=== PATIENT | female | born 1945 | race Caucasian/White ===

== ENCOUNTER 2017-10-12 01:28 | Day surgery (SDC) | payer MEDICARE ==
[~2017-10-12] VITALS: Ht 149.9 cm; Wt 61.7 kg
[~2017-10-12 01:28] MED LIST: ALLO-2 PO; BUME0.5T PO; BUME0.5T10 PO; CALC-852 PO; CALC-886 PO; CIPR-344 PO; DILT180C73 PO; DILT90CA PO; DILT90TA19 PO; EST3 PO; FURO-45 PO; GLUC-198 PO; HYDR-6016 PO; IBUP-56 PO; INDO50CA92 PO; LIS20 PO; LISI-374 PO; LYSI500C3 PO; LYSI500T34 PO; METR-1 PO; ONDA8TAB94 PO; PNEU0.5D3 IM; PROM-110 PO; PROM25SU9 RC; SULF-198 PO; [UNRECOGNIZED DRUG - CODE] PO
[2017-10-12] MEDS ORDERED: NORMOSOL R SOLN(*) 1000 ML BAG 1,000 ML IV PRN (09:10)
[2017-10-12] MEDS ORDERED: FAMOTIDINE 20 MG TAB PO ONE (09:10)
[2017-10-12] MEDS ORDERED: LIDOCAINE/SOD BICARB 8.4% SYR ID ONE (09:10)
[2017-10-12] MEDS ORDERED: MIDAZOLAM 2 MG/2 ML VIAL IVP PRN (09:40)
[2017-10-12 10:36] VITALS: BP 125/67
[2017-10-12] MEDS ORDERED: PROPOFOL EMUL(*) 10MG/ML 20 ML 60 ML ONE (11:05)
[2017-10-12] MEDS ORDERED: ONDANSETRON 4 MG/2 ML VIAL ONE (11:05)
[2017-10-12] MEDS ORDERED: LIDOCAINE MPF 1% 5 ML VIAL ONE (11:05)
--- NOTE | 2017-10-12 11:49 | EKG ---
FACILITY: [facility] - [place] PATIENT NAME: YONI PHILLIPS : [id number] MR: [id number] V: [id number] EXAM DATE: ORDERING PHYSICIAN: ORVILLE DARLING TECHNOLOGIST: Alvino Long Reason : Blood Pressure : / mmHG Vent. Rate : 063 BPM Atrial Rate : 063 BPM P-R Int : 178 ms QRS Dur : 094 ms QT Int : 426 ms P-R-T Axes : 059 001 038 degrees QTc Int : 435 ms Normal sinus rhythm Normal ECG No previous ECGs available Confirmed by NADINE DALAL ([id number]) on 10/12/2017 2:35:36 PM Referred By: Confirmed By:NADINE DALAL
[2017-10-12] MEDS ORDERED: HYDR100E16 RC (12:35)
--- NOTE | 2017-10-12 12:41 | Short(Outpt) Discharge Summary ---
Discharge Summary Reason for Hosp/Final Diag: (1) Proctitis Status: Chronic Hospital Course & Plan: Colonoscopy with rectal biopsies completed without problems. Pt to go home from PACU if recovers without problems. (2) BRBPR (bright red blood per rectum) Status: Chronic Departure Discharge to: Home, Self Care Discharge Instructions Home Meds Active Scripts Hydrocortisone (CORTENEMA) 100 Mg/60 Ml Enema, 1 BOT RC QHS, #30 BOT 2 Refills Inject the enema into your rectum at bedtime and try to retain in your rectum all night long if possible Prov:ANGELIQUE PORTILLO MD 10/12/17 Allopurinol (Allopurinol) 300 Mg Tablet, 1 TAB PO QDAY, #90 TAB 4 Refills Prov:JENNY CARBAJAL MD 04/12/17 Bumetanide (BUMETANIDE) 0.5 Mg Tablet, 1 TAB PO QAM, #90 TAB 4 Refills Prov:JENNY CARBAJAL MD 04/12/17 Lisinopril (LISINOPRIL) 40 Mg Tablet, 1 TAB PO QDAY, #90 TAB 4 Refills Prov:JENNY CARBAJAL MD 04/12/17 Reported Medications Glucosa Campo 2KCL/Chondroitin Campo (GLUCOSAMINE & CHONDROITIN CAP) 1 Each Capsule, 2 CAP PO QDAY, CAPSULE 04/24/14 Calcium Carbonate/Vitamin D3 (CALCIUM + VITAMIN D TABLET) 1 Each Tablet, 2 TAB PO QDAY 04/24/14 Follow up Referrals: General Surgery - 11/03/17 @ Surgery, General with Angelique Portillo Md You have a follow up appointment scheduled with Dr. Portillo on 11/03/17, at 9:00am. Diet: Regular Activity: As Tolerated Special Instructions: Your colonoscopy was completed without problems and your prep was excellent (Good Job!!). I was able see your entire colon and there were no polyps or cancers. Your rectum is inflamed and you may have a condition called ulcerative proctitis. I took several biopsies in your rectum. I didn't remove any hemorrhoids or cut your sphincter muscle because these procedures can lead to worsening problems in patients with proctitis. I have prescribed a steroid enema and would like for your to inject one enema into your rectum every night at bedtime and try and retain it in your rectum overnight. Also, avoid taking any medications that contain NSAIDS, non-steroidal anti-inflamatory drugs (ibuprofen, motrin, aspirin, aleve, advil, naproxen, naprosyn, etc). Tylenol (acetaminophen) is OK. I will discuss the biopsy results and will see how your symptoms are when I see you back in my office on 11/03/17. ANGELIQUE PORTILLO MD Oct 12, 2017 12:40
--- NOTE | 2017-10-12 12:46 | Post Operative Progress Note ---
Post Operative Progress Note Date: Oct 12, 2017 Time: 12:40 Surgeon: Rc Dictation number: [id number] Anesthesia: LMA by Dr. Kearney Pre-Op Diagnosis: BRBPR Post-Op Diagnosis: Proctitis Findings: Proctitis, suspect IBD limited to rectum Procedure(s): Colonoscopy with biopsies Specimen Removed:(May be N/A): Rectal biopsies Complications: None Fluids: See anesthesia record Estimated Blood Loss: Minimal Date OP Note Dictated: Oct 12, 2017 Time OP Note Dictated: 12:41 ANGELIQUE PORTILLO MD Oct 12, 2017 12:46
[2017-10-12 13:23] VITALS: BP 104/57
[2017-10-12 13:49] VITALS: BP 121/65
[2017-10-12 13:51] VITALS: BP 116/72
--- NOTE | 2017-10-12 20:39 | OPERATIVE REPORT 1 ---
EVENT DATE: October 12, 2017 ENDOSCOPIST: Bradley Tatum MD ANESTHESIOLOGIST: Dinesh Kearney MD ANESTHESIA: LMA. PREOPERATIVE DIAGNOSIS Bright red blood per rectum. POSTOPERATIVE DIAGNOSIS Bright red blood per rectum. PROCEDURE PERFORMED Colonoscopy with biopsies. COMPLICATIONS None. CONDITION Stable. BLOOD LOSS Minimal. SPECIMENS Rectal biopsies. FINDINGS This patient had inflammation confined to her rectum. The rest of her colon other than sigmoid diverticulosis was unremarkable. There were no polyps or cancers. INDICATIONS This is a 72-year-old female whom I have been following with bright red blood per rectum. We put her on a bowel regimen and had some improvement in her bright red blood per rectum, but it persisted. Although she has had a colonoscopy four years ago, which was normal other than sigmoid diverticulosis, I recommended another colonoscopy to determine the cause of her bright red blood per rectum. DESCRIPTION OF PROCEDURE The patient was brought the operating room and placed supine on the operating table. LMA anesthesia was administered because we were preparing for a possible hemorrhoidectomy or even an internal sphincterotomy, and then her legs were placed in candy cane stirrups. The colonoscope was obtained and tested to ensure it was completely functional, then lubricated, and inserted into her rectum through the anus. I advanced the scope all the way through to the cecum and into the terminal ileum without any problems and then slowly withdrew the scope and looked at all mucosal surfaces to look for any abnormalities. When the tip was in the rectum, I retroflexed the scope to look at the anal canal and distal rectum and then straightened the scope out, desufflated the colon, and removed the scope from her rectum. In the rectum, there was marked inflammation with diffuse edema, pseudomembranes, mucus deposits on the mucosa, loss of vasculature. I took several biopsies throughout the rectum. The terminal ileum and the rest of the colon other than sigmoid diverticulosis were unremarkable. There were no polyps or inflammation or cancers. When the scope was withdrawn, the patient was awakened in the LMA room. She was brought to the recovery room in good condition. I elected not to do any other procedure such as sphincterotomy because I did not see a fissure. There were hemorrhoids , but I elected to leave these alone due to the inflammation so as to prevent further problems for her. [facility]
== END 2017-10-12 13:23 | disposition home or self-care (01) ==
LOC: OR 01:28
PROVIDERS: ATTEND Surgery
DX: K62.5 Hemorrhage of anus and rectum (principal); I10 Essential (primary) hypertension
CPT/HCPCS: 00811; 36415; 45380; 88305; 93005; A9270; J2001; J2405; J2704; 82310; 82374; 82435; 82565; 82947; 84132; 84295; 84520

== ENCOUNTER → 2017-11-16 | Outpatient (CLI) | payer MEDICARE ==
[~2017-11-16] MED LIST changes: +HYDR100E16 RC
--- NOTE | 2017-11-16 10:58 | RADIOLOGY IMAGING REPORT ---
FACILITY: [facility] - [place] PATIENT NAME: Karen Fonseca : 1945 MR: [id number] V: [id number] EXAM DATE: ORDERING PHYSICIAN: ANGELIQUE PORTILLO TECHNOLOGIST: Location: [facility] [place] Patient: Karen Fonseca : 1945 Visit/Account:[id number] Date of Sevice: 11/16/2017 THYROID HISTORY: Elevated serum calcium COMPARISON: None. FINDINGS: SIZE: Right lobe: 5.2 x 1.7 x 2 cm Left lobe: 4.5 x 2 x 1.7 cm Isthmus: 2 mm PARENCHYMA: Homogeneous. NODULES: Right lobe: * In the anterior aspect of mid right lobe there is a complex partially cystic well-circumscribed 1. 7 x 1.3 x 0.7 cm mass containing a small peripheral calcification. * In the posterior aspect of the lower lobe there is a slightly lobular partially cystic 1.6 x 1.3 x 0.8 cm nodule * Posterior to the mid right lobe there is a 1.3 x 1.1 x 1.1 cm hypoechoic slightly lobular nodule. Left lobe: * In the medial aspect mid left lobe there is a 7 x 5 x 7 mm well-circumscribed hypoechoic nodule. In the lateral aspect mid left lobe there is an 8 x 6 x 5 mm well-circumscribed isoechoic nodule in t he inferior left lobe there is a 5 mm well-circumscribed hypoechoic nodule Isthmus: * None discrete. VASCULARITY: Within normal limits. ADDITIONAL FINDINGS: None. IMPRESSION: The anterior aspect of the mid right lobe there is a 1.7 cm partially complex nodule. In the posteri or aspect of the right lower lobe there is a 1.6 cm partially complex nodule in the posterior aspect mid right lobe there is a 1.3 cm slightly lobular nodule. Ultrasound-guided FNA biopsy of these nodu les recommended REFERENCE: 2015 [place] [employer] Management Guidelines for Adult Patients with Thyroid Nodules and D ifferentiated Thyroid Cancer: The [place] [employer] Guidelines Task Force on Thyroid Nodul es and Differentiated Thyroid Cancer. SONOGRAPHIC PATTERNS: * Benign: Purely cystic nodules (no solid component); estimated risk of malignancy <1 percent; no bi opsy recommended. * Very Low Suspicion: Spongiform or partially cystic nodules without any of the sonographic features described in low, intermediate, or high suspicion patterns; estimated risk of malignancy <3 percent; consider FNA at > 2 cm (Observation without FNA is also a reasonable option). * Low Suspicion: Isoechoic or hyperechoic solid nodule, or partially cystic nodule with eccentric so lid areas, without microcalcification, irregular margin or ETE (extra-thyroidal extension), or taller than wide shape; estimated risk of malignancy 5-10 percent; recommend FNA at >1.5 cm. * Intermediate Suspicion: Hypoechoic solid nodule with smooth margins without microcalcifications, E TE (extra-thyroidal extension), or taller than wide shape; estimated risk of malignancy 10-20 percent ; recommend FNA at > 1 cm. * High Suspicion: Solid hypoechoic nodule or solid hypoechoic component of a partially cystic nodule with one or more of the following features: irregular margins (infiltrative, microlobulated), microc alcifications, taller than wide shape, rim calcifications with small extrusive soft tissue component, evidence of ETE (extra-thyroidal extension); estimated risk of malignancy >70-90 percent; recommend FNA at > 1 cm. NOTES: * Although a sonographically suspicious subcentimeter thyroid nodule without evidence of extrathyroi scar extension or sonographically suspicious lymph nodes may be observed with close sonographic follow -up rather than pursuing immediate FNA, patient age and preference may modify decision-making. A > 50% interval increase in nodule volume and/or development of new suspicious sonographic features are felt to be a valid reasons for potential re-aspiration of a nodule previously shown to have benig n FNA cytology. Report Dictated By: Stacey Mai MD at 11/16/2017 10:19 AM Report E-Signed By: Stacey Mai MD at 11/16/2017 10:53 AM WSN:[email or web address]
== END ==
LOC: US 01:31
PROVIDERS: ATTEND Surgery
DX: E04.2 Nontoxic multinodular goiter (principal)
CPT/HCPCS: 76536

== ENCOUNTER → 2017-11-28 | Outpatient (CLI) | payer MEDICARE ==
[~2017-11-28] MED LIST changes: +MESA10007 RC; +MESA800T2 PO
[2017-11-28 10:37] LABS: INR 0.96
--- NOTE | 2017-11-28 14:57 | RADIOLOGY IMAGING REPORT ---
FACILITY: [facility] - [place], [place] PATIENT NAME: Karen Fonseca : 1945 MR: [id number] V: [id number] EXAM DATE: ORDERING PHYSICIAN: ANGELIQUE PORTILLO TECHNOLOGIST: Location: [facility] Patient: Karen Fonseca : 1945 Visit/Account:[id number] Date of Sevice: 11/28/2017 Examination: Nuclear Medicine Parathyroid Scan Comparison: Thyroid ultrasound 11/16/2017. History: Increased parathyroid hormone. Procedure: 25.9 mCi technetium 99m Sestamibi was injected intravenously. Multiplanar Gamma camera im ages were obtained of the head, neck and chest at 15 minutes and 3 hours following radiotracer admini stration . FINDINGS: 15 minute images: Normal uptake of tracer by the salivary glands, the thyroid gland, myocardium, and visualized upper abdomen. 3 hour images: Normal washout of tracer from the thyroid gland. No focal areas of abnormal radiotrac er uptake are identified in the neck or mediastinum. IMPRESSION: No evidence of a parathyroid adenoma or ectopic parathyroid tissue. Report Dictated By: Terrell Cochran MD at 11/28/2017 2:52 PM Report E-Signed By: Terrell Cochran MD at 11/28/2017 2:54 PM WSN:[email or web address]
== END ==
LOC: RAD 11-27 03:42 → NUC 00:36
PROVIDERS: ATTEND Surgery
DX: Z01.818 Encounter for other preprocedural examination (principal); E34.9 Endocrine disorder, unspecified
CPT/HCPCS: 36415; 78070; 85610; A9500

== ENCOUNTER → 2017-11-29 | Outpatient (CLI) | payer MEDICARE ==
--- NOTE | 2017-11-29 12:38 | RADIOLOGY IMAGING REPORT ---
FACILITY: [facility] PATIENT NAME: Karen Fonseca : 1945 MR: [id number] V: [id number] EXAM DATE: ORDERING PHYSICIAN: ANGELIQUE PORTILLO TECHNOLOGIST: [place] [facility] [facility] [place]: Karen Fonseca : 1945 Visit/Account:[id number] Date of Sevice: 11/29/2017 Ultrasound-guided fine-needle biopsy of right upper thyroid nodule, ultrasound-guided fine-needle bio psy of right mid thyroid nodule, and ultrasound-guided fine-needle biopsy of right inferior thyroid n odule. HISTORY: Multiple thyroid nodules, possible right parathyroid nodule. COMPARISON: 11/16/2017. The procedure and risks including bleeding, infection, and inadequate sampling were explained to the patient who agreed to proceed. A preliminary ultrasound was obtained confirming a a 1.8 cm heterogene ous nodule in the right upper thyroid lobe. Ultrasound images were recorded and archived. Following s terile prep and drape the skin and subcutaneous tissues were anesthetized with one percent lidocaine without epinephrine. Under direct ultrasound guidance a 25 gauge needle was advanced into the nodule with care taken to avoid the carotid artery and other major structures. A specimen was obtained using capillary technique. Air dried smears were prepared. Remaining material was placed into cytofixative . 2 additional 25 gauge needles were used to sample different portions of the lesion. Two additiona l passes were made with 25-gauge needles to be held in reserve for Afirma testing. The patient tolera devon the procedure well without complications. A preliminary ultrasound was obtained confirming a 1.6 cm heterogeneous nodule along the posterior as pect of the right mid thyroid lobe. Ultrasound images were recorded and archived. Following sterile p rep and drape the skin and subcutaneous tissues were anesthetized with one percent lidocaine without epinephrine. Under direct ultrasound guidance a 25 gauge needle was advanced into the nodule with car e taken to avoid the carotid artery and other major structures. A specimen was obtained using capilla ry technique. Air dried smears were prepared. Remaining material was placed into cytofixative. 2 add itional 25 gauge needles were used to sample different portions of the lesion. Two additional passes were made with 25-gauge needles to be held in reserve for Afirma testing. The patient tolerated the procedure well without complications. A preliminary ultrasound was obtained confirming a a 1.6 cm heterogeneous nodule in the inferior pole of the right thyroid lobe. Ultrasound images were recorded and archived. Following sterile prep and drape the skin and subcutaneous tissues were anesthetized with one percent lidocaine without epinephr ine. Under direct ultrasound guidance a 25 gauge needle was advanced into the nodule with care taken to avoid the carotid artery and other major structures. A specimen was obtained using capillary techn ique. Air dried smears were prepared. Remaining material was placed into cytofixative. 2 additional 25 gauge needles were used to sample different portions of the lesion. Two additional passes were ma de with 25-gauge needles to be held in reserve for Afirma testing. The patient tolerated the procedur e well without complications. IMPRESSION: Ultrasound-guided fine-needle biopsy of right upper thyroid nodule. Ultrasound-guided fine-needle biopsy of right mid thyroid or parathyroid nodule. Ultrasound-guided fine-needle biopsy of right inferior thyroid nodule. Report Dictated By: Tj Hernandez MD at 11/29/2017 12:28 PM Report E-Signed By: Tj Hernandez MD at 11/29/2017 12:33 PM WSN:[email or web address]
== END ==
LOC: US 01:18
PROVIDERS: ATTEND Surgery
DX: E04.2 Nontoxic multinodular goiter (principal)
CPT/HCPCS: 10022; 76942; 88104; 88172

== ENCOUNTER 2017-12-04 06:02 | Emergency (ER) | payer MEDICARE ==
[~2017-12-04 06:02] MED LIST changes: -DIAZ-308 PO
[2017-12-04] MEDS ORDERED: MECLIZINE HCL 25 MG TAB PO ONE (06:10)
[2017-12-04] MEDS ORDERED: PROMETHAZINE 25 MG/ML 1 ML AMP IVP ONE (06:10)
[2017-12-04] MEDS ORDERED: ONDANSETRON 4 MG/2 ML VIAL IVP ONE (06:10)
--- NOTE | 2017-12-04 06:16 | ER Report ---
History and Physical Time Seen By MD: 06:11 Hx. of Stated Complaint: PATIENT HAS BEEN UP SINCE 4AM WITH "SEVERE" VERITGO AND NAUSEA. (DAYANARA ESCOBAR DO) HPI/ROS CHIEF COMPLAINT: Vertigo and vomiting HISTORY OF PRESENT ILLNESS: 72-year-old female brought in by EMS from home. With severe vertigo since 4 AM patient's had multiple episodes of vomiting. Patient denies headache or blurry vision. Patient has a recent history of a fine-needle aspiration of a thyroid mass last Monday she reports her symptoms are similar. View of her record shows no CT head or brain MRIs in the past. Patient describes feeling lightheaded for several days since the biopsy on Monday. This morning she awoke at 4 AM was unable to get out of bed. She describes room spinning sensation. She felt like the bed was tilted to one side. She's never had vertigo like this before. Patient denies visual changes. She notes no changes in her speech. She notes some numbness in her hands. REVIEW OF SYSTEMS: Respiratory: No cough, no dyspnea. Cardiovascular: No chest pain, no palpitations. Gastrointestinal: As above Musculoskeletal: No back pain. (DAYANARA ESCOBAR DO) Allergies: Coded Allergies: hydrochlorothiazide (Verified Allergy, Intermediate, SWELLING, 04/27/14) codeine (Verified Adverse Reaction, Mild, NAUSEA, 04/27/14) hydrocodone (Verified Adverse Reaction, Mild, NAUSEA, HEADACHE, 04/27/14) Uncoded Allergies: TAPE (Allergy, Mild, BLISTERS UNDER MOST BANDAIDS, 07/08/08) Home Meds Active Scripts Diazepam (DIAZEPAM) 5 Mg Tablet, 5 MG PO 2-3XD Y for DIZZINESS MDD 5 mg for 3 Days, #10 TAB Take one tab every 8 hours as needed for dizziness Prov:WEI COX DO 12/04/17 Mesalamine (Mesalamine) 800 Mg Tablet.dr, 2 TAB.SR PO TID, #120 TAB.SR 1 Refill Prov:ANGELIQUE PORTILLO MD 11/27/17 Hydrocortisone (CORTENEMA) 100 Mg/60 Ml Enema, 1 BOT RC QHS, #30 BOT 2 Refills Inject the enema into your rectum at bedtime and try to retain in your rectum all night long if possible Prov:ANGELIQUE PORTILLO MD 11/03/17 Allopurinol (Allopurinol) 300 Mg Tablet, 1 TAB PO QDAY, #90 TAB 4 Refills Prov:JENNY CARBAJAL MD 04/12/17 Bumetanide (BUMETANIDE) 0.5 Mg Tablet, 1 TAB PO QAM, #90 TAB 4 Refills Prov:JENNY CARBAJAL MD 04/12/17 Lisinopril (LISINOPRIL) 40 Mg Tablet, 1 TAB PO QDAY, #90 TAB 4 Refills Prov:JENNY CARBAJAL MD 04/12/17 Reported Medications Glucosa Campo 2KCL/Chondroitin Campo (GLUCOSAMINE & CHONDROITIN CAP) 1 Each Capsule, 2 CAP PO QDAY, CAPSULE 04/24/14 Calcium Carbonate/Vitamin D3 (CALCIUM + VITAMIN D TABLET) 1 Each Tablet, 2 TAB PO QDAY 04/24/14 Past Medical/Surgical History Past Medical History HEENT: Reports hx of: tinnitus Cardiovascular: Reports hx of: hypertension Musculoskeletal: Reports hx of: gout (03/24) osteoarthritis osteopenia Infectious disease: Reports hx of: other infectious disease (cellulitis post dog bite 2013) Gastrointestinal disease: Ulcerative colitis Past Surgical History HEENT: Reports hx of: cataract extraction (bilat ) tonsillectomy (childhood ) Gynecologic: Reports hx of: hysterectomy (1986) oophorectomy (unilateral, ovarian cyst) other [employer]IST[employer] PROF[employer]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[employer] surgery (D&C, multiple) (DAYANARA ESCOBAR DO) Reviewed Nurses Notes: Yes Old Medical Records Reviewed: Yes (DAYANARA ESCOBAR DO) Hx Smoking: No (QUIT 1971) Smoking Status: Former Smoker Exposure to Second Hand Smoke?: Yes (father smoked a pipe (quit when she was in high)) Hx Alcohol Use: Yes (DAYANARA ESCOBAR DO) Constitutional Vital Sign - Last 24 Hours 12/04/17 12/04/17 12/04/17 06:05 06:32 07:10 Temp 98.2 Pulse 78 75 Resp 16 B/P (MAP) 134/87 116/71 (86) Pulse Ox 98 99 O2 Delivery Room Air O2 Flow Rate 2.0 (WEI COX DO) Physical Exam Vital signs stable, afebrile, pulse ox normal General Appearance: The patient is alert, has no immediate need for airway protection and no current signs of toxicity. Mild distress, slightly pale appearing, skin warm and dry HEENT: Pupils equal and round no injection. TMs normal, oropharynx without redness or exudate, mucous members are moist Respiratory: Chest is non tender, lungs are clear to auscultation. Cardiac: regular rate and rhythm Gastrointestinal: Abdomen is soft and non tender, no masses, bowel sounds normal. Musculoskeletal: Neck: Neck is supple and non tender. There is bruising on the right anterior neck from pineal aspiration Extremities have full range of motion and are non tender. Skin: No rashes or lesions. DIFFERENTIAL DIAGNOSIS: After history and physical exam differential diagnosis was considered for vertigo including but not limited to peripheral causes such as benign positional vertigo, Mnire's disease, viral labyrinthitis and central causes such as CVA, and tumor. (DAYANARA ESCOBAR DO) Medical Decision Making Data Points Result Diagram: 12/04/17 0620 12/04/17 0620 Laboratory Hematology Test 12/04/17 06:20 Red Blood Count 4.79 M/uL (4.17-5.56) Mean Corpuscular Volume 85.3 fL (80.0-96.0) Mean Corpuscular Hemoglobin 29.1 pg (26.0-33.0) Mean Corpuscular Hemoglobin Concent 34.2 g/dL (32.0-36.0) Red Cell Distribution Width 14.8 % (11.5-14.5) Mean Platelet Volume 8.9 fL (7.2-11.1) Neutrophils (%) (Auto) 62.5 % (39.4-72.5) Lymphocytes (%) (Auto) 27.7 % (17.6-49.6) Monocytes (%) (Auto) 7.0 % (4.1-12.4) Eosinophils (%) (Auto) 1.7 % (0.4-6.7) Basophils (%) (Auto) 1.1 % (0.3-1.4) Nucleated RBC Relative Count (auto) 0.0 /100WBC Neutrophils # (Auto) 4.9 K/uL (2.0-7.4) Lymphocytes # (Auto) 2.2 K/uL (1.3-3.6) Monocytes # (Auto) 0.6 K/uL (0.3-1.0) Eosinophils # (Auto) 0.1 K/uL (0.0-0.5) Basophils # (Auto) 0.1 K/uL (0.0-0.1) Nucleated RBC Absolute Count (auto) 0.00 K/uL Erythrocyte Sedimentation Rate 27 mm/HOUR (0-30) Sodium Level 139 mmol/L (137-145) Potassium Level 3.1 mmol/L (3.5-5.0) Chloride Level 101 mmol/L (98-107) Carbon Dioxide Level 24 mmol/L (22-31) Blood Urea Nitrogen 24 mg/dl (7-18) Creatinine 1.30 mg/dl (0.52-1.04) Glomerular Filtration Rate Calc 40.4 Random Glucose 123 mg/dl (75-110) Calcium Level 11.4 mg/dl (8.4-10.2) Total Bilirubin 0.5 mg/dl (0.2-1.3) Aspartate Amino Transf (AST/SGOT) 29 U/L (0-35) Alanine Aminotransferase (ALT/SGPT) 31 U/L (0-56) Alkaline Phosphatase 66 U/L (0-126) Total Protein 7.0 gm/dl (6.3-8.2) Albumin 4.2 g/dl (3.5-5.0) Chemistry Test 12/04/17 06:20 White Blood Count 7.9 k/uL (4.5-11.0) Red Blood Count 4.79 M/uL (4.17-5.56) Hemoglobin 14.0 g/dL (12.0-16.0) Hematocrit 40.9 % (34.0-47.0) Mean Corpuscular Volume 85.3 fL (80.0-96.0) Mean Corpuscular Hemoglobin 29.1 pg (26.0-33.0) Mean Corpuscular Hemoglobin Concent 34.2 g/dL (32.0-36.0) Red Cell Distribution Width 14.8 % (11.5-14.5) Platelet Count 230 K/uL (150-450) Mean Platelet Volume 8.9 fL (7.2-11.1) Neutrophils (%) (Auto) 62.5 % (39.4-72.5) Lymphocytes (%) (Auto) 27.7 % (17.6-49.6) Monocytes (%) (Auto) 7.0 % (4.1-12.4) Eosinophils (%) (Auto) 1.7 % (0.4-6.7) Basophils (%) (Auto) 1.1 % (0.3-1.4) Nucleated RBC Relative Count (auto) 0.0 /100WBC Neutrophils # (Auto) 4.9 K/uL (2.0-7.4) Lymphocytes # (Auto) 2.2 K/uL (1.3-3.6) Monocytes # (Auto) 0.6 K/uL (0.3-1.0) Eosinophils # (Auto) 0.1 K/uL (0.0-0.5) Basophils # (Auto) 0.1 K/uL (0.0-0.1) Nucleated RBC Absolute Count (auto) 0.00 K/uL Erythrocyte Sedimentation Rate 27 mm/HOUR (0-30) Glomerular Filtration Rate Calc 40.4 Calcium Level 11.4 mg/dl (8.4-10.2) Total Bilirubin 0.5 mg/dl (0.2-1.3) Aspartate Amino Transf (AST/SGOT) 29 U/L (0-35) Alanine Aminotransferase (ALT/SGPT) 31 U/L (0-56) Alkaline Phosphatase 66 U/L (0-126) Total Protein 7.0 gm/dl (6.3-8.2) Albumin 4.2 g/dl (3.5-5.0) (WEI COX DO) ED Course/Re-evaluation ED Course Patient was evaluated. With a nonfocal neurologic examination except vertigo. She was sent for CT scan of the head. Diagnostic laboratories were unremarkable. Case was signed out at shift change to Dr. Cox with a head CT pending. Decision to Disposition Date: December 04, 2017 Decision to Disposition Time: 07:23 (DAYANARA ESCOBAR DO) ED Course I received the patient in signout from Dr. Escobar. CT of the head showed no acute intracranial findings. Labs were unremarkable. Patient had received meclizine, Phenergan, Zofran with mild relief of symptoms. I gave the patient a dose of Valium and she was able to ambulate to the bathroom with improvement in her vertiginous symptoms. Patient reported feeling that her symptoms had improved significantly. Patient denies any further focal neurological deficits, blurred vision, diplopia, fevers or chills. She reported that her symptoms seem to worsen with positioning of her head. Decision to Disposition Date: December 04, 2017 Decision to Disposition Time: 09:02 (WEI COX DO) Depart Departure Latest Vital Signs Vital Signs Date Time Temp Pulse Resp B/P (MAP) Pulse Ox O2 Delivery O2 Flow Rate FiO2 12/04/17 07:10 2.0 12/04/17 06:32 75 116/71 (86) 99 12/04/17 06:05 98.2 16 Room Air (WEI COX DO) Impression: Primary Impression: Vertigo Condition: Improved Disposition: HOME OR SELF-CARE Referrals: JENNY CARBAJAL MD (PCP) New Scripts Diazepam (DIAZEPAM) 5 Mg Tablet 5 MG PO 2-3XD Y for DIZZINESS MDD 5 mg for 3 Days, #10 TAB Take one tab every 8 hours as needed for dizziness Prov: WEI COX DO 12/04/17 Patient Instructions: Diazepam (By mouth), Vertigo (ED) Additional Instructions: You may take 1 tab every 8 hours as needed dizziness. Please follow-up with your family doctor in the next 3 days. Please return promptly if he has difficulty walking, eating, developed fevers, double vision, blurry vision, headaches. DAYANARA ESCOBAR DO December 04, 2017 06:16 WEI COX DO December 04, 2017 09:07
[2017-12-04 06:27] LABS: PLATELET COUNT, AUTOMATED 230 K/uL (150-450)
--- NOTE | 2017-12-04 07:11 | RADIOLOGY IMAGING REPORT ---
FACILITY: [facility] PATIENT NAME: Karen Fonseca : 1945 MR: [id number] V: [id number] EXAM DATE: ORDERING PHYSICIAN: DAYANARA FRIEND TECHNOLOGIST: Location: [facility] Patient: Karen Fonseca : 1945 Visit/Account:[id number] Date of Sevice: 12/04/2017 EXAMINATION: CT Head without intravenous contrast HISTORY: Vertigo TECHNIQUE: Axial images were obtained from the skull base to the vertex without intravenous contrast . Sagittal and coronal reformatted images are also submitted. One of the following dose optimization techniques was utilized in the performance of this exam: Autom ated exposure control; adjustment of the mA and/or kV according to the patient's size; or use of an i terative reconstruction technique. Specific details can be referenced in the facility's radiology C T exam operational policy. COMPARISON: None available. FINDINGS: Brain volume: Normal. Ventricles: Negative. Acute ischemic changes: None. Hemorrhage: None. Masses / edema: None. Sanders-white: Negative. White matter: Negative. Vessels: Negative. Extra-axial: Negative. Calvarium / skull base: Left greater than right TMJ arthritis. Visualized sinuses / orbits: Negative. IMPRESSION: No acute intracranial abnormality. Report Dictated By: Placido Broderick MD at 12/04/2017 7:00 AM Report E-Signed By: Placido Broderick MD at 12/04/2017 7:05 AM WSN:[id number]
[2017-12-04] MEDS ORDERED: DIAZEPAM 50 MG/10 ML MDV IVP ONE (07:40)
[2017-12-04] MEDS ORDERED: DIAZEPAM 5 MG TAB PO ONE (07:55)
[2017-12-04] MEDS ORDERED: DIAZ-308 PO (09:06)
[2017-12-04 09:15] VITALS: BP 109/63
== END 2017-12-04 09:17 | disposition home or self-care (01) ==
LOC: ER 06:11
DX: R42 Dizziness and giddiness (principal)
CPT/HCPCS: 70450; 85025; 85651; 96374; 96375; 99284; A9270; J2405; J2550; J8597; 82040; 82247; 82310; 82374; 82435; 82565; 82947; 84075; 84132; 84155; 84295; 84450; 84460; 84520

== ENCOUNTER → 2017-12-04 | Outpatient (CLI) | payer MEDICARE ==
[~2017-12-04] MED LIST changes: +DIAZ-308 PO
== END ==
LOC: AMB 05:45
PROVIDERS: ATTEND Nurse Practitioner
DX: R42 Dizziness and giddiness (principal); R11.0 Nausea
CPT/HCPCS: A0425; A0427

== ENCOUNTER → 2017-12-14 | Outpatient (CLI) | payer MEDICARE ==
[~2017-12-14] MED LIST changes: +DIAZ-308 PO
--- NOTE | 2017-12-14 14:32 | RADIOLOGY IMAGING REPORT ---
FACILITY: [facility] [place] PATIENT NAME: Karen Fonseca : 1945 MR: [id number] V: [id number] EXAM DATE: ORDERING PHYSICIAN: JENNY CARBAJAL TECHNOLOGIST: Location: [facility] Patient: Karen Fonseca : 1945 Visit/Account:[id number] Date of Sevice: 12/14/2017 DEXA Scan Clinical history: Osteopenia. Comparison: DEXA scan from 04/26/2012. LUMBAR SPINE: The bone mineral density (BMD) measured from L1-L4 correlates with a Z-score of 2.1 and a T-score of 0.4 which is Normal as defined by the World Health Organization. The corresponding risk of fracture in the lumbar spine is Not increased compared with a young adult reference population. This value shetty s increased by 3.8 % since the prior study. More than 5% change is considered significant. HIP: Bone mineral density (BMD) measured in the LEFT total hip region correlates with a Z-score 0.2 and a T-score of -1.4 which is osteopenia as defined by the World Health Organization. The corresponding r isk of fracture in the hip is 2-3 times increased compared to a young adult reference population. Thi s value has decreased by -4.5 % since the prior study. More than 5% change is considered significant . T score left femoral neck -1.7 Bone mineral density (BMD) measured in the Femoral Neck region measures 0.802 g/cm?. IMPRESSION: 1. Lumbar spine: Normal. There has been 3.8% increase in the bone mineral density since the previou s exam. 2. Left Total Hip: Osteopenia. There has been 4.5% decrease in the bone mineral density since the p revious exam. 3. Femoral Neck: Bone Mineral Density is 0.802 g/cm? The next DEXA scan of this patient should include the following sites: L1-L4 and the left hip. FRAX? WHO Fracture Risk Assessment Tool link: <http://www.shef.ac.uk/FRAX/tool.jsp?locationValue=9> PLEASE NOTE: 1) The World Health Organization defines low BMD as follows: T-score Normal > -1 Osteopenia < -1 and > -2.5 Osteoporosis < -2.5 without fractures Established osteoporosis < -2.5 with fractures 2) In general, you may wish to consider: Diagnosis Treatment Follow-up DEXA Normal BMD Prevention 2-3 years Osteopenia Prevention/therapy 1-2 years Osteoporosis Therapy Yearly 3) Fracture risk estimated from the T-score is more accurate for vertebral fractures (often spontane ous) than for hip fractures. Report Dictated By: Stacey Mai MD at 12/14/2017 2:25 PM Report E-Signed By: Stacey Mai MD at 12/14/2017 2:27 PM WSN:[email or web address]
== END ==
LOC: RAD 13:28
PROVIDERS: ATTEND Internal Medicine
DX: Z13.820 Encounter for screening for osteoporosis (principal); M85.88 Other specified disorders of bone density and structure, other site
CPT/HCPCS: 77080

== ENCOUNTER → 2018-02-16 | Outpatient (CLI) | payer MEDICARE ==
[~2018-02-16] MED LIST changes: +INDO-23 PO; -INDO50CA92 PO; +MESA1.2T3 PO
== END ==
LOC: LAB 16:37
PROVIDERS: ATTEND Surgery
DX: E04.1 Nontoxic single thyroid nodule (principal); E21.3 Hyperparathyroidism, unspecified; E83.52 Hypercalcemia; I10 Essential (primary) hypertension
CPT/HCPCS: 36415; 82310; 82330; 82374; 82435; 82565; 82947; 83970; 84132; 84295; 84520

== ENCOUNTER → 2018-04-18 | Outpatient (CLI) | payer MEDICARE ==
[~2018-04-18] MED LIST changes: +HYDR-6045 RC; +PRE5 PO; +PRED20TA6 PO
[2018-04-18 15:09] LABS: PLATELET COUNT, AUTOMATED 293 K/uL (150-450)
--- NOTE | 2018-04-18 15:34 | RADIOLOGY IMAGING REPORT ---
FACILITY: [facility] [place] PATIENT NAME: Karen Fonseca : 1945 MR: [id number] V: [id number] EXAM DATE: ORDERING PHYSICIAN: ANGELIQUE PORTILLO TECHNOLOGIST: Location: [facility] Patient: Karen Fonseca : 1945 Visit/Account:[id number] Date of Sevice: 04/18/2018 THYROID HISTORY: NODULAR goiter, hypercalcemia, hypertension COMPARISON: November 29, 2017 FINDINGS: SIZE: Right lobe: 5.5 x 1.5 x 1.5 cm Left lobe: 3.8 x 1.5 x 1.3 cm Isthmus: 3 mm PARENCHYMA: Heterogeneous bilaterally NODULES: Right lobe: * In the anterior aspect of the mid to upper pole there is a 1.5 x 1.3 x 0.7 cm partially cystic par tially solid mass that appears relatively unchanged * In the posterior aspect of the mid to inferior pole there is a 1.6 x 1.4 x 1.1 cm slightly complex nodule which is minimally increased when compared the prior study. * In the posterior mid pole there is a 1.3 x 1.1 x 0.9 cm complex nodule relatively unchanged Left lobe: * In the medial aspect of the mid left lobe there is a 8 x 6 x 7 mm well-circumscribed hypoechoic no dule is minimally increased * In the inferior left lobe there is a 4 mm well-circumscribed hypoechoic nodule with relatively unc hanged. * In the lateral aspect of the mid left lobe there is a 9 x 7 x 8 mm well-circumscribed hypoechoic n odule that is minimally increased Isthmus: * None discrete. VASCULARITY: Within normal limits. ADDITIONAL FINDINGS: None. IMPRESSION: Multiple bilateral solid thyroid nodules as described. The anterior mid to upper pole nodule on the right and the posterior midpole nodule in the right appear relatively unchanged. The posterior mid t o inferior pole nodule is slightly increased when compared the prior study. By history these nodules have been previously biopsied therefore correlation with pathology results recommended In the left lobe there are three subcentimeter nodules two of which are minimally increased. REFERENCE: 2015 [place] [employer] Management Guidelines for Adult Patients with Thyroid Nodules and D ifferentiated Thyroid Cancer: The [place] [employer] Guidelines Task Force on Thyroid Nodul es and Differentiated Thyroid Cancer. SONOGRAPHIC PATTERNS: * Benign: Purely cystic nodules (no solid component); estimated risk of malignancy <1 percent; no bi opsy recommended. * Very Low Suspicion: Spongiform or partially cystic nodules without any of the sonographic features described in low, intermediate, or high suspicion patterns; estimated risk of malignancy <3 percent; consider FNA at > 2 cm (Observation without FNA is also a reasonable option). * Low Suspicion: Isoechoic or hyperechoic solid nodule, or partially cystic nodule with eccentric so lid areas, without microcalcification, irregular margin or ETE (extra-thyroidal extension), or taller than wide shape; estimated risk of malignancy 5-10 percent; recommend FNA at >1.5 cm. * Intermediate Suspicion: Hypoechoic solid nodule with smooth margins without microcalcifications, E TE (extra-thyroidal extension), or taller than wide shape; estimated risk of malignancy 10-20 percent ; recommend FNA at > 1 cm. * High Suspicion: Solid hypoechoic nodule or solid hypoechoic component of a partially cystic nodule with one or more of the following features: irregular margins (infiltrative, microlobulated), microc alcifications, taller than wide shape, rim calcifications with small extrusive soft tissue component, evidence of ETE (extra-thyroidal extension); estimated risk of malignancy >70-90 percent; recommend FNA at > 1 cm. NOTES: * Although a sonographically suspicious subcentimeter thyroid nodule without evidence of extrathyroi scar extension or sonographically suspicious lymph nodes may be observed with close sonographic follow -up rather than pursuing immediate FNA, patient age and preference may modify decision-making. A > 50% interval increase in nodule volume and/or development of new suspicious sonographic features are felt to be a valid reasons for potential re-aspiration of a nodule previously shown to have benig n FNA cytology. Report Dictated By: Stacey Mai MD at 04/18/2018 3:16 PMReport E-Signed By: Bobby Mccurdy at 04/18/2018 3:30 PM WSN:[email or web address]
== END ==
LOC: US 02:26
PROVIDERS: ATTEND Surgery
DX: E04.2 Nontoxic multinodular goiter (principal); E04.1 Nontoxic single thyroid nodule; E21.3 Hyperparathyroidism, unspecified; E83.52 Hypercalcemia; I10 Essential (primary) hypertension
CPT/HCPCS: 36415; 76536; 82310; 82330; 82374; 82435; 82565; 82947; 83970; 84132; 84295; 84520; 85025; 85651; 86140

== ENCOUNTER 2018-09-25 09:59 | Emergency (ER) | payer MEDICARE ==
[~2018-09-25 09:59] MED LIST changes: +MESA4ENE13 RC
--- NOTE | 2018-09-25 10:02 | ER Report ---
History and Physical Time Seen By MD: 10:01 HPI/ROS CHIEF COMPLAINT: sinus pressure, cough HISTORY OF PRESENT ILLNESS: Patient is a 73-year-old female with history of thyroid nodules, hypertension who presents with 4-5 weeks of progressively worsening nasal discharge that has turned purulent along with pressure between the eyes and also a postnasal drip causing a hacking cough. She denies any fevers or chills. She denies ear pain. She denies chest pressure or shortness of breath. REVIEW OF SYSTEMS: ENT: Sinus pressure, runny nose Respiratory: Nonproductive cough Cardiovascular: No chest pain, no palpitations. Gastrointestinal: No vomiting, no abdominal pain. Musculoskeletal: No back pain. Allergies: Coded Allergies: hydrochlorothiazide (Verified Allergy, Intermediate, SWELLING, 04/27/14) codeine (Verified Adverse Reaction, Mild, NAUSEA, 04/27/14) hydrocodone (Verified Adverse Reaction, Mild, NAUSEA, HEADACHE, 04/27/14) Uncoded Allergies: TAPE (Allergy, Mild, BLISTERS UNDER MOST BANDAIDS, 07/08/08) OPIOIDS (Adverse Reaction, Mild, NAUSEA/VOMITING, 03/13/18) Home Meds Active Scripts Mesalamine (MESALAMINE) 4 Gm/60 Ml Enema, 4 GM RC QHS, #30 BOT 3 Refills Prov:ANGELIQUE PORTILLO MD 07/25/18 Mesalamine (Mesalamine) 1.2 Gram Tablet.dr, 2 TAB.SR PO DAILY, #180 TAB.SR 3 Refills Prov:ANGELIQUE PORTILLO MD 07/09/18 Allopurinol (Allopurinol) 300 Mg Tablet, 1 TAB PO QDAY, #90 TAB 4 Refills Prov:JENNY CARBAJAL MD 05/10/18 Bumetanide (BUMETANIDE) 0.5 Mg Tablet, 1 TAB PO QAM, #90 TAB 4 Refills Prov:JENNY CARBAJAL MD 05/10/18 Lisinopril (LISINOPRIL) 40 Mg Tablet, 1 TAB PO QDAY, #90 TAB 4 Refills Prov:JENNY CARBAJAL MD 05/10/18 Reported Medications Glucosa Campo 2KCL/Chondroitin Campo (GLUCOSAMINE & CHONDROITIN CAP) 1 Each Capsule, 2 CAP PO QDAY, CAPSULE 04/24/14 Calcium Carbonate/Vitamin D3 (CALCIUM + VITAMIN D TABLET) 1 Each Tablet, 2 TAB PO QDAY 04/24/14 Past Medical/Surgical History Past medical history for gout, hypertension, history of thyroid nodules Hx Smoking: No (QUIT 1971) Smoking Status: Former Smoker Exposure to Second Hand Smoke?: Yes (father smoked a pipe (quit when she was in jr high)) Hx Substance Use Disorder: No Hx Alcohol Use: Yes Constitutional Vital Sign - Last 24 Hours 09/25/18 10:06 Temp 99.3 Pulse 99 Resp 16 B/P (MAP) 126/83 Pulse Ox 94 O2 Delivery Room Air Physical Exam General Appearance: Alert, no distress. Eyes: Pupils equal and round no pallor or injection. ENT, Mouth: Ears: Tympanic membranes are normal. Nose: No bleeding. Nares are red and inflamed with purulent nasal discharge from the turbinates Mouth: Mucous membranes are moist. Throat: Patient with posterior cobblestoning of the posterior pharynx Musculoskeletal: Neck is supple non tender, no adenopathy. Skin: Warm and dry, no rashes. Medical Decision Making ED Course/Re-evaluation ED Course Based on history and physical exam suspect patient with sinusitis and postnasal drip causing cough. Plan at this time will be oral antibiotics with Augmentin for 10 days also topical nasal decongestant. Decision to Disposition Date: Sep 25, 2018 Decision to Disposition Time: 10:22 Depart Departure Latest Vital Signs Vital Signs Date Time Temp Pulse Resp B/P (MAP) Pulse Ox O2 Delivery O2 Flow Rate FiO2 09/25/18 10:06 99.3 99 16 126/83 94 Room Air Impression: Primary Impression: Sinusitis, acute, sphenoidal Condition: Improved Disposition: HOME OR SELF-CARE Referrals: HUE BOUDREAUX MD (PCP) as schduled on , September 27 New Scripts Oxymetazoline Hcl (AFRIN) 15 Ml Mist 2 SPRAYS CHARU BID for 3 Days, #1 BOTTLE 0 Refills discontinue use after 3 days Prov: ENMANUEL CHRISTIE MD 09/25/18 Amoxicillin/Pot Clav 875-125 Mg Tab (AUGMENTIN 875-125 TABLET) 1 Each Tablet 1 TAB PO Q12H for 10 Days, #20 TAB 0 Refills Prov: ENMANUEL CHRISTIE MD 09/25/18 Patient Instructions: Sinusitis (ED) Problem Qualifiers Primary Impression: Sinusitis, acute, sphenoidal Recurrence: non-recurrent Qualified Codes: J01.30 - Acute sphenoidal sinusitis, unspecified ENMANUEL CHRISTIE MD Sep 25, 2018 10:02
[2018-09-25 10:06] VITALS: BP 126/83
[2018-09-25] MEDS ORDERED: OXYM15MI14 ENA (10:24)
[2018-09-25] MEDS ORDERED: AMOX-559 PO (10:24)
== END 2018-09-25 10:32 | disposition home or self-care (01) ==
LOC: ER 10:12
DX: J01.30 Acute sphenoidal sinusitis, unspecified (principal)
CPT/HCPCS: 99281

== ENCOUNTER → 2018-10-02 | Outpatient (CLI) | payer MEDICARE ==
[~2018-10-02] MED LIST changes: +AMOX-559 PO; +OXYM15MI14 ENA
--- NOTE | 2018-10-02 15:11 | RADIOLOGY IMAGING REPORT ---
FACILITY: [facility] PATIENT NAME: Karen Fonseca : 1945 MR: [id number] V: [id number] EXAM DATE: ORDERING PHYSICIAN: HUE BOUDREAUX TECHNOLOGIST: Location: [facility] Patient: Karen Fonseca : 1945 Visit/Account:[id number] Date of Sevice: 10/02/2018 CHEST PA LAT History: Cough FINDINGS: Comparison studies: None. Tubes and Lines: None. Lungs and pleura: Well aerated. No evidence of focal consolidation or pleural effusions. Mediastinum: normal. Cardiac silhouette: normal . Osseous structures: Unremarkable for age . IMPRESSION: Normal chest Report Dictated By: Feliz Narayanan MD at 10/02/2018 3:04 PM Report E-Signed By: Feliz Narayanan MD at 10/02/2018 3:06 PM WSN:[email or web address]
== END ==
LOC: RAD 14:12
PROVIDERS: ATTEND Emergency Medicine
DX: E78.5 Hyperlipidemia, unspecified (principal); E83.52 Hypercalcemia; I10 Essential (primary) hypertension; R05 Cough
CPT/HCPCS: 36415; 71046; 82306; 82310; 82374; 82435; 82465; 82565; 82607; 82947; 83718; 84132; 84295; 84478; 84520

== ENCOUNTER → 2018-10-03 | Outpatient (CLI) | payer MEDICARE ==
[2018-10-03 10:30] LABS: PLATELET COUNT, AUTOMATED 293 K/uL (150-450)
== END ==
LOC: LAB 09:59
PROVIDERS: ATTEND Surgery
DX: E83.52 Hypercalcemia (principal); I10 Essential (primary) hypertension; E21.3 Hyperparathyroidism, unspecified; E04.2 Nontoxic multinodular goiter
CPT/HCPCS: 36415; 82310; 82330; 82374; 82435; 82565; 82947; 83970; 84132; 84295; 84443; 84520; 85025

== ENCOUNTER → 2018-10-03 | Outpatient (CLI) | payer MEDICARE | LOC: LAB 10:03 | PROVIDERS: ATTEND Emergency Medicine | DX: Z02.9 Encounter for administrative examinations, unspecified (principal) ==

== ENCOUNTER → 2018-10-05 | Outpatient (CLI) | payer MEDICARE ==
--- NOTE | 2018-10-05 11:27 | RADIOLOGY IMAGING REPORT ---
FACILITY: [facility] PATIENT NAME: Karen Fonseca : 1945 MR: [id number] V: [id number] EXAM DATE: ORDERING PHYSICIAN: ANGELIQUE PORTILLO TECHNOLOGIST: Location: [facility] Patient: Karen Fonscea : 1945 Visit/Account:[id number] Date of Sevice: 10/05/2018 THYROID HISTORY: Hyperparathyroid COMPARISON: April 18, 2018 FINDINGS: SIZE: Enlarged Right lobe: 2.2 x 2.1 x 5.9 cm Left lobe: 1.7 x 1.7 x 4.7 cm Isthmus: 2 mm PARENCHYMA: Homogeneous. NODULES: Right lobe: Three dominant nodules as follows: * Nodule 1-upper pole 1.5 cm image 28-mostly cystic (very low suspicion category) nodule with a slig htly thickened wall, previously 1.3 cm, with a larger cystic component on today's exam otherwise stab le appearance. Previously biopsied according to the prior report. * Nodule 2-mid right lobe image 35-complex hypoechoic and cystic (very low suspicion category) nodul e measuring 1.9 cm, no change when accounting for differences in the way was measured. Previously bi opsied according to the prior report. * Nodule 3-lower pole image 38-complex hypoechoic solid and cystic (very low suspicion category) nod ule measuring 1.6 cm, previously 1.3 cm. * Caudal to the right lobe, separate from the thyroid there is an oval 4 x 5 x 6 mm nodule anterior to the carotid artery on image 41 which is a possible parathyroid gland. Left lobe: * Three dominant nodules as follows: * Nodule 1-mid to upper pole, image 74, hypoechoic circumscribed round nodule measuring 9 mm which i s new. * Nodule 2-image 77-16 mm hypoechoic oval wider than tall circumscribed nodule which is new, interme diate suspicion category. * Nodule 3 lower pole image 80-oval wider than tall circumscribed nodule measuring 11 mm which is ne w, intermediate suspicion category. * No additional nodule with a high suspicion sonographic pattern or measuring greater than or equal to 1 cm. VASCULARITY: Within normal limits. ADDITIONAL FINDINGS: None. IMPRESSION: 1. Multinodular goiter. 2. There are no right lobe nodules which meet JEEVAN criteria for FNA. 3. In the left lobe, nodule 2 and 3 are intermediate suspicion category nodules, new from previous w hich are greater than 1 cm in size and therefore these meet JEEVAN criteria for ultrasound-guided FNA if clinically desired. 4. 6 mm (upper normal size) possible parathyroid gland caudal to the right lobe of the thyroid anter ior to the carotid artery. REFERENCE: 2015 [place] [employer] Management Guidelines for Adult Patients with Thyroid Nodules and D ifferentiated Thyroid Cancer: The [place] [employer] Guidelines Task Force on Thyroid Nodul es and Differentiated Thyroid Cancer. SONOGRAPHIC PATTERNS: * Benign: Purely cystic nodules (no solid component); estimated risk of malignancy <1 percent; no bi opsy recommended. * Very Low Suspicion: Spongiform or partially cystic nodules without any of the sonographic features described in low, intermediate, or high suspicion patterns; estimated risk of malignancy <3 percent; consider FNA at > 2 cm (Observation without FNA is also a reasonable option). * Low Suspicion: Isoechoic or hyperechoic solid nodule, or partially cystic nodule with eccentric so lid areas, without microcalcification, irregular margin or ETE (extra-thyroidal extension), or taller than wide shape; estimated risk of malignancy 5-10 percent; recommend FNA at >1.5 cm. * Intermediate Suspicion: Hypoechoic solid nodule with smooth margins without microcalcifications, E TE (extra-thyroidal extension), or taller than wide shape; estimated risk of malignancy 10-20 percent ; recommend FNA at > 1 cm. * High Suspicion: Solid hypoechoic nodule or solid hypoechoic component of a partially cystic nodule with one or more of the following features: irregular margins (infiltrative, microlobulated), microc alcifications, taller than wide shape, rim calcifications with small extrusive soft tissue component, evidence of ETE (extra-thyroidal extension ; estimated risk of malignancy >70-90 percent; recommend FNA at > 1 cm. NOTES:* Although a sonographically suspicious subcentimeter thyroid nodule without evidence of extra thyroidal extension or sonographically suspicious lymph nodes may be observed with close sonographic follow-up rather than pursuing immediate FNA, patient age and preference may modify decision-making. * A > 50% interval increase in nodule volume and/or development of new suspicious sonographic featur es are felt to be a valid reasons for potential re-aspiration of a nodule previously shown to have be nign FNA cytology. Report Dictated By: Jose Love at 10/05/2018 10:59 AM Report E-Signed By: Jose Love at 10/05/2018 11:23 AM WSN:[email or web address]
== END ==
LOC: US 01:51
PROVIDERS: ATTEND Surgery
DX: E04.2 Nontoxic multinodular goiter (principal)
CPT/HCPCS: 76536

== ENCOUNTER → 2018-10-12 | Outpatient (CLI) | payer MEDICARE ==
[~2018-10-12] MED LIST changes: +ROSU10TA PO
--- NOTE | 2018-10-12 16:58 | RADIOLOGY IMAGING REPORT ---
FACILITY: [facility] [place] PATIENT NAME: Karen Fonseca : 1945 MR: [id number] V: [id number] EXAM DATE: ORDERING PHYSICIAN: ANGELIQUE PORTILLO TECHNOLOGIST: Location: [facility] [place] Patient: Karen Fonseca : 1945 Visit/Account:[id number] Date of Sevice: 10/12/2018 Examination: Nuclear Medicine Parathyroid Scan Comparison: Ultrasound 10/05/2018. Parathyroid imaging 11/28/2017. History: Hyperparathyroidism. Potential parathyroid adenoma on recent ultrasound. Procedure: 25.3 mCi technetium 99m Sestamibi was injected intravenously. Multiplanar Gamma camera im ages were obtained of the head, neck and chest at 15 minutes and 3 hours following radiotracer admini stration with additional SPECT imaging at 3 hours. FINDINGS: 15 minute images: Normal uptake of tracer by the salivary glands, thyroid, myocardium, and visualize d upper abdomen. 2 hour images: Normal washout of tracer from the thyroid gland. No focal areas of abnormal radiotrac er uptake are identified in the neck or mediastinum. IMPRESSION: No scintigraphic findings of a parathyroid adenoma or ectopic parathyroid tissue. Report Dictated By: Terrell Cochran MD at 10/12/2018 4:51 PM Report E-Signed By: Terrell Cochran MD at 10/12/2018 4:54 PM WSN:[id number]
== END ==
LOC: NUC 02:22
PROVIDERS: ATTEND Surgery
DX: E21.3 Hyperparathyroidism, unspecified (principal)
CPT/HCPCS: 78070; A9500

== ENCOUNTER → 2018-10-26 | Outpatient (CLI) | payer MEDICARE ==
--- NOTE | 2018-10-26 16:00 | RADIOLOGY IMAGING REPORT ---
FACILITY: [facility] PATIENT NAME: YONI PHILLIPS : [id number] MR: [id number] V: [id number] EXAM DATE: [id number] ORDERING PHYSICIAN: HUE BOUDREAUX TECHNOLOGIST: Oly Dior PROCEDURE:BILATERAL DIGITAL SCREENING MAMMOGRAM WITH CAD ASSISTED INTERPRETATION & 3D TOMOSYNTHESIS COMPARISON:Prior mammograms 01/02/14, 12/06/12. INDICATIONS:Screening FINDINGS: There are scattered areas of fibroglandular density throughout the breasts. The parenchymal pattern has remained stable allowing for difference in mammographic technique & patient positioning. Just lateral to midline in the middle 1/3 of the Right breast on the Right CC view is a small grouping of round calcifications that appear slightly more prominent when compared to the prior study. This may be related to a difference in mammographic technique however Spot magnification view is recommended for further evaluation. These appear to be located in the upper portion of the Right breast on the Right MLO view in the middle 1/3. DIAGNOSTIC CATEGORY 0--INCOMPLETE: NEED ADDITIONAL IMAGING EVALUATION. RECOMMENDATIONS: ADDITIONAL MAMMOGRAPHIC VIEWS REQUIRED: RIGHT BREAST. IMPRESSION: BIRADS 0: Incomplete. Additional views of the Right breast is recommended as described. Dictated by: Stacey Mai M.D. on 10/26/2018 at 15:29 Transcribed by: VÍCTOR on 10/26/2018 at 15:37 Approved by: Stacey Mai M.D. on 10/26/2018 at 15:59 [facility]
== END ==
LOC: MAMO 02:11
PROVIDERS: ATTEND Emergency Medicine
DX: Z12.31 Encounter for screening mammogram for malignant neoplasm of breast (principal); R92.8 Other abnormal and inconclusive findings on diagnostic imaging of breast
CPT/HCPCS: 77063; 77067

== ENCOUNTER 2018-10-30 13:35 | Outpatient (RCR) | payer MEDICARE ==
[2018-10-30 14:00] LABS: INR 1.02
--- NOTE | 2018-10-31 17:27 | RADIOLOGY IMAGING REPORT ---
FACILITY: PATIENT NAME: Karen Fonseca : 1945 MR: [id number] V: [id number] EXAM DATE: ORDERING PHYSICIAN: ANGELIQUE PORTILLO TECHNOLOGIST: Location: [facility] [place] Patient: Karen Fonseca : 1945 Visit/Account:[id number] Date of Sevice: 10/31/2018 Exam type: US BIOPSY LOC/INJ THYROID History: Ultrasound guided thyroid biopsy Comparison: Thyroid ultrasound October 05, 2018. Findings: Informed consent was obtained. Left-sided patient's neck was prepped and draped usual sterile fashio n. Local anesthesia was accomplished with 1% lidocaine. Under direct and continuous sonographic susanna dance four 25-gauge FNA biopsies were obtained through the two dominant left thyroid nodules. Sample s were given to the time study technologist. The procedure was accomplished without apparent complica tion. IMPRESSION: 1. Successful sonographically guided FNA biopsy of two left-sided thyroid nodules Report Dictated By: Stacey Mai MD at 10/31/2018 5:22 PM Report E-Signed By: Stacey Mai MD at 10/31/2018 5:23 PM WSN:[email or web address]
[2018-11-02] MEDS ORDERED: LEVO750T44 PO (10:48)
[2018-11-02] MEDS ORDERED: FLUT16SP19 NS (10:48)
[2018-11-02] MEDS ORDERED: BENZ200C15 PO (10:48)
[2018-11-14] MEDS ORDERED: DOXY-179 PO (16:23)
[2018-11-14] MEDS ORDERED: PRED20TA6 PO (16:23)
[2018-11-14] MEDS ORDERED: IPR14R INH (16:23)
== END 2018-10-31 18:00 | disposition home or self-care (01) ==
LOC: US 13:35 → EDSTATUS 10-31 13:35 → US 10-31 18:00
PROVIDERS: ATTEND Surgery
DX: Z01.818 Encounter for other preprocedural examination (principal); E21.3 Hyperparathyroidism, unspecified; E04.1 Nontoxic single thyroid nodule; D34 Benign neoplasm of thyroid gland
CPT/HCPCS: 10005; 36415; 76942; 85610; 88104; 88172

== ENCOUNTER → 2018-11-14 | Outpatient (CLI) | payer MEDICARE ==
[~2018-11-14] MED LIST changes: +BENZ200C15 PO; +DOXY-179 PO; +FLUT16SP19 NS; +IPR14R INH; +LEVO750T44 PO
--- NOTE | 2018-11-15 17:26 | RADIOLOGY IMAGING REPORT ---
FACILITY: [facility] PATIENT NAME: YONI PHILLIPS : [id number] MR: [id number] V: [id number] EXAM DATE: [id number] ORDERING PHYSICIAN: HUE BOUDREAUX TECHNOLOGIST: Oly Dior PROCEDURE:RIGHT DIGITAL MAMMOGRAM DIAGNOSTIC WITH CAD ASSISTED INTERPRETATION & 3D TOMOSYNTHESIS REASON FOR STUDY: Indeterminate calcifications Right breast FAMILY HISTORY OF BREAST CANCER: None BREAST PROCEDURES/TREATMENTS: None COMPARISON STUDIES: Mammogram 10/26/18, 01/02/14 MAMMOGRAM VIEWS OBTAINED: Right mediolateral, & mag view Right CC & mag view Right MLO BREAST DENSITY: Scattered areas of fibroglandular density MAMMOGRAM FINDINGS: There is a cluster of microcalcifications of slightly different size & shape in the Right breast upper outer quadrant, posterior third for depth. ASSESSMENT: BIRADS 4: Suspicious for malignancy. DIAGNOSTIC CATEGORY 4--SUSPICIOUS FOR MALIGNANCY. RECOMMENDATIONS: STEREOTACTIC BREAST BIOPSY: RIGHT BREAST. This was discussed with the patient by Dr Shepherd. Dictated by: Juvenal Shepherd M.D. on 11/14/2018 at 14:43 Transcribed by: JAY on 11/15/2018 at 6:51 Approved by: Juvenal Shepherd M.D. on 11/15/2018 at 17:25 [facility]
== END ==
LOC: MAMO 01:03
PROVIDERS: ATTEND Emergency Medicine
DX: R92.1 Mammographic calcification found on diagnostic imaging of breast (principal)
CPT/HCPCS: 77061; 77065

== ENCOUNTER → 2018-11-20 | Outpatient (CLI) | payer MEDICARE ==
[2018-11-20 12:45] LABS: INR 1.01
== END ==
LOC: LAB 11:48
PROVIDERS: ATTEND Surgery
DX: Z01.812 Encounter for preprocedural laboratory examination (principal)
CPT/HCPCS: 36415; 85610

== ENCOUNTER → 2018-11-21 | Outpatient (CLI) | payer MEDICARE ==
--- NOTE | 2018-11-23 10:44 | RADIOLOGY IMAGING REPORT ---
FACILITY: [facility] PATIENT NAME: YONI PHILLIPS : [id number] MR: [id number] V: [id number] EXAM DATE: [id number] ORDERING PHYSICIAN: ANGELIQUE PORTILLO TECHNOLOGIST: Emy Raymond PROCEDURE:RIGHT DIGITAL MAMMOGRAM DIAGNOSTIC. REASON FOR STUDY: POST STEREOTACTIC BIOPSY. COMPARISON STUDIES: 11/14/18 MAMMOGRAM MAMMOGRAM FINDINGS: The stereotactic biopsy clip is located in the upper outer quadrant of the Right breast in the location of the previously noted indeterminate calcifications. Most of these calcifications are no longer seen. IMPRESSION: The biopsy clip is noted in the upper outer quadrant of the Right breast in the location of the previously noted indeterminate calcifications which are no longer seen. Pathology results are pending. Dictated by: Stacey Mai M.D. on 11/21/2018 at 11:39 Transcribed by: VÍCTOR on 11/22/2018 at 15:18 Approved by: Stacey Mai M.D. on 11/23/2018 at 10:43 [facility]
--- NOTE | 2018-11-23 10:44 | RADIOLOGY IMAGING REPORT ---
FACILITY: [facility] PATIENT NAME: YONI PHILLIPS : [id number] MR: [id number] V: [id number] EXAM DATE: [id number] ORDERING PHYSICIAN: ANGELIQUE PORTILLO TECHNOLOGIST: Emy Raymond PROCEDURE: STEREOTACTIC RIGHT BREAST BIOPSY COMPARISON: None. INDICATIONS: Indeterminate calcifications Right breast FINDINGS: Informed consent was obtained. The patient was placed prone on the stereotactic biopsy table. The indeterminate calcifications in the upper outer quadrant of the Right breast were localized with digital stereo pair mammograms. The Right breast was prepped in the usual sterile fashion. Local anesthesia was accomplished with 1% Lidocaine. Deep anesthesia was accomplished with 1% Lidocaine with epinephrine. Under mammographic guidance twelve 9 Gauge vacuum assisted core biopsies were obtained through the region of the indeterminate calcifications. The specimen radiograph demonstrated the calcifications to be predominantly within one of the core samples. A biopsy clip was placed in the biopsy site. The procedure was accomplished without apparent complication. CONCLUSION: Successful stereotactic biopsy of the Right breast as described above. Dictated by: Stacey Mai M.D. on 11/21/2018 at 11:37 Transcribed by: JAY on 11/22/2018 at 15:18 Approved by: Stacey Mai M.D. on 11/23/2018 at 10:43 [facility]
== END ==
LOC: MAMO 00:48
PROVIDERS: ATTEND Surgery
DX: R92.8 Other abnormal and inconclusive findings on diagnostic imaging of breast (principal)
CPT/HCPCS: 19081; 77061; 77065; 88305; 88344

== ENCOUNTER → 2018-11-26 | Outpatient (CLI) | payer MEDICARE | LOC: LAB 08:33 | PROVIDERS: ATTEND Family Medicine | DX: E78.5 Hyperlipidemia, unspecified (principal); I10 Essential (primary) hypertension; M10.9 Gout, unspecified | CPT/HCPCS: 36415; 82040; 82247; 82248; 82310; 82374; 82435; 82465; 82565; 82947; 83718; 84075; 84132; 84155; 84295; 84450; 84460; 84478; 84520; 84550 ==

== ENCOUNTER → 2018-12-18 | Outpatient (CLI) | payer MEDICARE ==
[~2018-12-18] MED LIST changes: -BUME0.5T10 PO; +BUME0.5T11 PO; +LORA-1081 PO; +MV-M1TAB57; +PANT40TA65 PO; +RANI-320 PO
--- NOTE | 2018-12-18 13:49 | RADIOLOGY IMAGING REPORT ---
FACILITY: [facility] [place] PATIENT NAME: Karen Fonseca : 1945 MR: [id number] V: [id number] EXAM DATE: ORDERING PHYSICIAN: ANGELIQUE PORTILLO TECHNOLOGIST: Location: [facility] Patient: Karen Fonseca : 1945 Visit/Account:[id number] Date of Sevice: 12/18/2018 DEXA Scan Clinical history: Osteopenia. Comparison: DEXA scan from 12/14/2017. LUMBAR SPINE: The bone mineral density (BMD) measured from L1-L4 correlates with a Z-score 1.7 and a T-score of 0. 0 which is Normal as defined by the World Health Organization. The corresponding risk of fracture in the lumbar spine is Not increased compared with a young adult reference population. This value has decreased by 3.8 % since the prior study. More than 5% change is considered significant. HIP: Bone mineral density (BMD) measured in the Left femoral neck region correlates with a Z-score 0.1 and a T-score of -1.7 which is osteopenia as defined by the World Health Organization. The correspond ing risk of fracture in the hip is increased compared with a young adult reference population. The to pawel hip value has decreased by 0.5 % since the prior study. More than 5% change is considered signif icant. Bone mineral density (BMD) measured in the Femoral Neck region measures 0.798 g/cm2. IMPRESSION: 1. Lumbar spine: Normal. There has been decreased in the bone mineral density since the previous ex am. 2. Left femoral neck region: Osteopenia. There has been decrease in the bone mineral density of the total hip since the previous exam. 3. Femoral Neck: Bone Mineral Density is 0.798 g/cm2 The next DEXA scan of this patient should include the following sites: L1-L4 and the left hip. FRAX? WHO Fracture Risk Assessment Tool link: <http://www.shef.ac.uk/FRAX/tool.jsp?locationValue=9> PLEASE NOTE: 1) The World Health Organization defines low BMD as follows: T-score Normal > -1 Osteopenia < -1 and > -2.5 Osteoporosis < -2.5 without fractures Established osteoporosis < -2.5 with fractures 2) In general, you may wish to consider: Diagnosis Treatment Follow-up DEXA Normal BMD Prevention 2-3 years Osteopenia Prevention/therapy 1-2 years Osteoporosis Therapy Yearly 3) Fracture risk estimated from the T-score is more accurate for vertebral fractures (often spontane ous) than for hip fractures. Report Dictated By: Juvenal Shepherd at 12/18/2018 1:42 PM Report E-Signed By: Juvenal Shepherd at 12/18/2018 1:44 PM WSN:[email or web address]
== END ==
LOC: RAD 00:23
PROVIDERS: ATTEND Surgery
DX: M85.852 Other specified disorders of bone density and structure, left thigh (principal)
CPT/HCPCS: 77080

== ENCOUNTER 2019-01-24 00:20 | Observation (INO) | payer MEDICARE ==
[2019-01-22 11:32] LABS: PLATELET COUNT, AUTOMATED 304 K/uL (150-450)
--- NOTE | 2019-01-22 11:40 | EKG ---
FACILITY: [facility] [place] PATIENT NAME: YONI PHILLIPS : [id number] MR: [id number] V: [id number] EXAM DATE: ORDERING PHYSICIAN: JAIDA MONTANEZ TECHNOLOGIST: CHANDLER Long Reason : PRE-OP Blood Pressure : / mmHG Vent. Rate : 087 BPM Atrial Rate : 087 BPM P-R Int : 178 ms QRS Dur : 082 ms QT Int : 366 ms P-R-T Axes : 071 019 062 degrees QTc Int : 440 ms Normal sinus rhythm Normal ECG When compared with ECG of 12-OCT-2017 11:00, No significant change was found Confirmed by CLAUDETTE MADRID ([id number]) on 01/22/2019 1:31:50 PM Referred By: LINDSEY Confirmed By:CLAUDETTE MADRID
[2019-01-24] VITALS (7 sets, daily range): BP systolic 101–130; BP diastolic 61–82
[~2019-01-24] VITALS: Ht 149.9 cm; Wt 62.1 kg
[2019-01-24] MEDS ORDERED: ceFAZolin(*) 2GM/D5W 50ML 50 ML IVPB ONE (11:50)
[2019-01-24] MEDS ORDERED: LIDOCAINE/SOD BICARB 8.4% SYR ID ONE (11:50)
[2019-01-24] MEDS ORDERED: NORMOSOL R SOLN(*) 1000 ML BAG 1,000 ML IV PRN (11:50)
[2019-01-24] MEDS ORDERED: MIDAZOLAM 2 MG/2 ML VIAL IVP PRN (11:50)
[2019-01-24] MEDS ORDERED: FAMOTIDINE 20 MG TAB PO ONE (11:50)
[2019-01-24] MEDS ORDERED: fentaNYL CITR 100 MCG/2 ML AMP ONE ×3 (14:03→21:15)
[2019-01-24] MEDS ORDERED: DEXAMETHASONE SOD PHOS 10MG/ML ONE (14:04)
[2019-01-24] MEDS ORDERED: ONDANSETRON 4 MG/2 ML VIAL ONE (14:04)
[2019-01-24] MEDS ORDERED: PROPOFOL EMUL(*) 10MG/ML 20 ML 20 ML ONE (14:04)
[2019-01-24] MEDS ORDERED: LIDOCAINE MPF 1% 5 ML VIAL ONE (14:04)
[2019-01-24] MEDS ORDERED: ROCURONIUM BR 10 MG/ML 5 ML SY 5 ML ONE (14:05)
[2019-01-24] MEDS ORDERED: GLYCOPYRROLATE 1 MG/5 ML INJ ONE (14:12)
[2019-01-24] MEDS ORDERED: NEOSTIG METHYLSUL 10MG/10ML VL ONE (14:12)
[2019-01-24] MEDS ORDERED: ROPIVACAINE 0.5% 20 ML VIAL ONE (15:33)
[2019-01-24] MEDS ORDERED: ACETAMINOPHEN(*)1000 MG/100 ML 100 ML IVPB ONE (20:54)
[2019-01-24] MEDS ORDERED: NS(*) 0.9% 1000 ML BAG 1,000 ML IV PRN (21:01)
[2019-01-24] MEDS ORDERED: ACETAMINOPHEN 325 MG TAB PO PRN (21:05)
[2019-01-24] MEDS ORDERED: ONDANSETRON 4 MG/2 ML VIAL IVP PRN (21:05)
[2019-01-24] MEDS ORDERED: MORPHINE 2 MG/ML SYR IVP PRN (21:05)
[2019-01-24] MEDS ORDERED: FLUSH 10 ML SYR IVP PRN (21:05)
[2019-01-24] MEDS ORDERED: NALOXONE HCL 0.4 MG/ML VIAL IVP PRN (21:05)
[2019-01-24] MEDS ORDERED: traMADol 50 MG TAB PO PRN (21:05)
--- NOTE | 2019-01-24 21:20 | Post Operative Progress Note ---
Post Operative Progress Note Date: Jan 24, 2019 Time: 21:05 Surgeon: Rc Dictation number: [id number] Anesthesia: GETA by Dr. Ledezma Pre-Op Diagnosis: 1) Right breast atypical ductal hyperplasia 2) Hyperparathyroidism Post-Op Diagnosis: SUGAR Findings: Apparent right lower parathyroid adenoma, left inferior confirmed parathyroid adenoma Procedure(s): 1) Right breast wire guided lesion excision 2) Bilateral neck exploration with removal of right inferior and left inferior parathyriod glands Specimen Removed:(May be N/A): 1) Right breast lesion 2) Right inferior parathyroid adenoma 3) Thyroid nodule 4) Right upper neck lesion 5) Left inferior parathyroid adenoma Complications: None Fluids: See anesthesia record Estimated Blood Loss: Minimal Date OP Note Dictated: Jan 24, 2019 Time OP Note Dictated: 21:08 ANGELIQUE PORTILLO MD Jan 24, 2019 21:20
[2019-01-25] VITALS (7 sets, daily range): BP systolic 91–115; BP diastolic 54–68
--- NOTE | 2019-01-25 03:48 | OPERATIVE REPORT 1 ---
EVENT DATE: January 24, 2019 SURGEON: Bradley Tatum MD ANESTHESIOLOGIST: Benji Ledezma DO ANESTHESIA: General endotracheal anesthesia. PREOPERATIVE DIAGNOSES 1. Right breast atypical ductal hyperplasia. 2. Hyperparathyroidism. POSTOPERATIVE DIAGNOSES 1. Right breast atypical ductal hyperplasia. 2. Suspected right inferior parathyroid adenoma. 3. Confirmed left inferior parathyroid adenoma. PROCEDURE PERFORMED 1. Right breast wire-guided lesion excision. 2. Bilateral neck exploration with removal of right inferior and left inferior parathyroid glands. COMPLICATIONS None. CONDITION Stable. BLOOD LOSS Minimal. INDICATIONS FOR PROCEDURE This is a 73-year-old female whom I have been caring for for quite a while at this point for ulcerative proctitis and other lesions, who was found about eight months ago to have hyperparathyroidism. She also had some thyroid nodules that we were following to confirm that she did not need her thyroid out at the same time, but ultimately these remained stable and were confirmed to be benign on biopsy. Then, she also developed a lesion on mammogram that was biopsied to reveal atypical ductal hyperplasia, and so she was requesting to have the atypical ductal hyperplasia removed and to have a neck exploration to remove the hyperfunctioning parathyroid glands. DESCRIPTION OF PROCEDURE The patient was brought to the operating room and placed supine on the operating table. General endotracheal anesthesia was administered, and her right breast was prepped and draped in a sterile fashion. A time-out was completed, and I had also previously reviewed the localization imaging preoperatively. I then marked the skin over where the approximate location of the breast lesion was located, and then anesthetized the skin with 0.5% bupivacaine plain. I made a curvilinear incision in the breast in the upper outer quadrant and dissected down through the dermis and subcutaneous fat, and then identified the wire, pulled it into the wound, and then dissected around the wire, around the tip, and then removed the specimen from the field. I then placed it on a specimen grid and brought it over to Mammography, took a picture of it, and it showed that the lesion was right in the middle of the specimen. I then went back to the operating room and scrubbed back in, irrigated and dried the wound, and made sure it was hemostatic. I then closed the pocket with interrupted 3-0 Vicryl sutures and then closed the skin with interrupted 3-0 Vicryl deep dermal sutures and 4-0 Monocryl running subcuticular sutures. The skin was cleaned and dried and Steri-Strips were applied, followed by a sterile surgical dressing. We then took all the drapes down and positioned the patient in a reclining beach-chair configuration with her neck extended, and then inserted the nerve monitor wires appropriately, and then prepped and draped her neck in a sterile fashion. I marked the skin just above the sternal notch and then made a 6 cm transverse Kenny incision after incising the skin with 0.5% ropivacaine plain. I dissected through the dermis and subcutaneous fat, through platysma muscle, and then created subplatysmal flaps up to the thyroid cartilage as well as down to the sternal notch, and then vertically divided the median raphe between the strap muscles. I then identified the isthmus of the thyroid and then dissected mostly bluntly laterally and anterior to the thyroid. Immediately, I could feel a hard nodule around where the inferior thyroid lobe was. Preoperative imaging consisted of parathyroid scan, which did not localize any parathyroid adenomas, but the ultrasound revealed a lesion which was potentially a parathyroid adenoma in the location of the palpable lesion during the surgery. I identified this, and it was dark and looked suspicious for a parathyroid adenoma. I dissected it free, and then we remove it from the wound and put it in a specimen container. Preoperative parathyroid hormone level was around 110, but after removing this, it went down to 96, and so I checked it again 10 minutes later and it had gone up to 107. I continued to explore in the patient's neck. I identified a nodule in the thyroid, which I enucleated, and sent this to Pathology. There was another area on the posterior aspect of the superior pole of the right thyroid lobe that was suspicious for an adenoma, and I dissected this free, but after I dissected it, it was fairly apparent that this was part of the thyroid gland, but it was sent to pathology. I then began exploring on the left side, and in the meantime, I had another number drawn, and it came back at 180. I identified the left superior parathyroid and thought I had identified the left inferior parathyroid, but after getting the 180, I kept exploring and ultimately was able to identify something that looked like an enlarged parathyroid gland, so I dissected this free and then sent it for frozen section, and pathology came back that this was a parathyroid adenoma. Her final PTH value was 58. I then irrigated and dried the neck and then placed a 10-Icelandic round drain in the patient's neck, exiting just at the level of the sternal notch, and then secured this to the skin with a 2-0 silk suture. I placed some Surgicel on both sides of her neck to ensure hemostasis, although there was no oozing or bleeding at this time. I then reapproximated the strap muscles in the midline with interrupted 3-0 Vicryl sutures, and then reapproximated the platysma muscle with interrupted 3-0 Vicryl sutures. She had a fairly thick layer of subcutaneous tissue, which I reapproximated with another layer of 3-0 Vicryl subcutaneous sutures, and then the skin was closed with interrupted 3-0 Vicryl deep dermal sutures and 4-0 Monocryl running subcuticular sutures. The skin was cleaned and dried and Steri-Strips were applied longitudinally on the incision, and then drain dressing was applied around the drain. She was then slowly awakened, and we inspected her cords and could see the arytenoids and cords moving symmetrically. She was then extubated and brought to the recovery room in stable condition, having tolerated the procedure without any apparent problems. STONE
[2019-01-25 05:56] LABS: PLATELET COUNT, AUTOMATED 248 K/uL (150-450)
[2019-01-25] MEDS ORDERED: DOCU-202 PO (07:49)
[2019-01-25] MEDS ORDERED: TRAM-420 PO (07:49)
--- NOTE | 2019-01-25 07:58 | Short(Outpt) Discharge Summary ---
Discharge Summary Reason for Hosp/Final Diag: (1) Hyperparathyroidism Status: Chronic Hospital Course & Plan: 01/25/19: POD#1 s/p right breast lesion excision and bilateral neck exploration with removal of parathyroid adenoma for primary hyperparathyroidism. She has done well overnight. Drain out this morning. Home this morning. Pt advised to take calcium daily as she had previously been doing as her bones will be replenishing their calcium stores which can lead to hypocalcemia. She should be on calcium supplements for the rest of her life anyhow due to osteopenia/porosis. 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 Home this morning. Departure Discharge to: Home, Self Care Discharge Instructions Home Meds Active Scripts Tramadol Hcl (TRAMADOL HCL) 50 Mg Tablet, 1 TAB PO Q4H PRN for PAIN, #15 TAB 0 Refills Prov:ANGELIQUE PORTILLO MD 01/25/19 Docusate Sodium (DOCUSATE SODIUM) 100 Mg Capsule, 1 CAP PO BID, #30 CAPSULE 0 Refills Prov:ANGELIQUE PORTILLO MD 01/25/19 Bumetanide (BUMETANIDE) 0.5 Mg Tablet, 1 TAB PO QDAY, #90 TAB 4 Refills Prov:ANGELIQUE PORTILLO MD 11/30/18 Mesalamine (MESALAMINE) 4 Gm/60 Ml Enema, 4 GM RC QHS, #30 BOT 2 Refills Prov:ANGELIQUE PORTILLO MD 10/16/18 Mesalamine (Mesalamine) 1.2 Gram Tablet.dr, 2 TAB.SR PO DAILY, #180 TAB.SR 3 Refills Prov:ANGELIQUE PORTILLO MD 07/09/18 Allopurinol (Allopurinol) 300 Mg Tablet, 1 TAB PO QDAY, #90 TAB 4 Refills Prov:JENNY CARBAJAL MD 05/10/18 Lisinopril (LISINOPRIL) 40 Mg Tablet, 1 TAB PO QDAY, #90 TAB 4 Refills Prov:JENNY CARBAJAL MD 05/10/18 Reported Medications Mv-Mn/Folic Acid/Calcium/Vit K (Women's 50 Plus Multivit Tab) 400 Mcg-500 Mg Calcium-20 Mcg Tablet 11/30/18 Glucosa Campo 2KCL/Chondroitin Campo (GLUCOSAMINE & CHONDROITIN CAP) 1 Each Capsule, 2 CAP PO QDAY, CAPSULE 04/24/14 Discontinued Reported Medications Loratadine/Pseudoephedrine (LORATADINE-D 12 HOUR TABLET) 1 Each Tab.er.12h, 1 EACH PO 11/30/18 Discontinued Scripts Pantoprazole Sodium (PANTOPRAZOLE SODIUM) 40 Mg Tablet.dr, 1 TAB PO DAILY, #45 TAB 0 Refills Take first thing every morning and wait 30 minutes before eating. Prov:ANGELIQUE PORTILLO MD 11/30/18 Ranitidine Hcl (RANITIDINE HCL) 300 Mg Tablet, 1 TAB PO QHS, #45 TAB 0 Refills Prov:ANGELIQUE PORTILLO MD 11/30/18 Ipratropium [place] 17 Mcg/Act (ATROVENT HFA 17 MCG/ACT) 12.9 Gm Inh, 2 PUFF INH QID for 10 Days, #1 INH 0 Refills Prov:KYLER ALFREDO DNP, RN [employer]ANSPLANT-BC 11/14/18 Fluticasone Prop 50 Mcg Ns (FLONASE 50 MCG NS) 16 Gm Antonito.susp, 2 SPRAYS NS QDAY for 14 Days, #1 BOT 0 Refills Prov:KYLER ALFREDO DNP, RN [employer] TR[employer]ANT-BC 11/02/18 Rosuvastatin Calcium (CRESTOR) 10 Mg Tab, 10 MG PO QDAY, #30 TAB 0 Refills Prov:HUE BOUDREAUX MD 10/11/18 Follow up Referrals: General Surgery - 02/08/19 @ Surgery, General with ANGELIQUE PORTILLO MD You have a follow up appointment scheduled with Dr. Portillo on 02/08/19, at 11:00am. Diet: Regular Activity: As Tolerated Special Instructions: You may remove the drain dressing and the breast dressing on 01/26/19, then you can shower. After showering, leave the incisions open to air but leave the steristrips in place until they fall off on their own. If the drain site is draining, cover it with a dry gauze or even a band-aid and change this daily until there's no further drainage at which time you can leave it open to air. Take a stool softener daily until your bowels are returning to "normal" to prevent postop constipation and make sure you're on a daily calcium supplement, at least 1000mg of calcium/day. Have your blood drawn prior to your follow up appointment with me; within 24 hours of your follow up appointment. ANGELIQUE PORTILLO MD Jan 25, 2019 07:58
[2019-01-25] MEDS ORDERED: CALCIUM CARBONATE 600 MG TAB PO SCH (08:00)
[2019-01-25] MEDS ORDERED: MESALAMINE 400 MG TABEC PO SCH (09:00)
[2019-01-25] MEDS ORDERED: FAMOTIDINE 20 MG TAB PO SCH (09:00)
[2019-01-25] MEDS ORDERED: DOCUSATE SODIUM 100 MG CAP PO SCH (09:00)
[2019-01-25] MEDS ORDERED: LISINOPRIL 20 MG TAB PO SCH (09:00)
[2019-01-25] MEDS ORDERED: GLUCOSAMINE-CHONDROITIN CAP PO SCH (09:00)
[2019-01-25] MEDS ORDERED: ALLOPURINOL 300 MG TAB PO SCH (09:00)
[2019-01-25] MEDS ORDERED: BUMETANIDE 2 MG TAB PO SCH (09:00)
== END 2019-01-25 07:46 | disposition home or self-care (01) ==
LOC: OR 00:20 → MED 22:00
PROVIDERS: ADMIT Surgery; ATTEND Surgery
DX: N60.91 Unspecified benign mammary dysplasia of right breast (principal); D35.1 Benign neoplasm of parathyroid gland
CPT/HCPCS: 19125; 36415; 60500; 83970; 85025; 88305; 88331; A9270; G0378; J0131; J1100; J2001; J2270; J2405; J2704; J2710; J2795; J3010; J3490; J7030; 82310; 82374; 82435; 82565; 82947; 84132; 84295; 84520; J0690

== ENCOUNTER → 2019-02-08 | Outpatient (CLI) | payer MEDICARE ==
[~2019-02-08] MED LIST changes: +DOCU-202 PO; +TRAM-420 PO
== END ==
LOC: LAB 10:28
PROVIDERS: ATTEND Surgery
DX: E83.52 Hypercalcemia (principal)

== ENCOUNTER → 2019-02-08 | Outpatient (CLI) | payer MEDICARE ==
[2019-02-08 11:06] LABS: PLATELET COUNT, AUTOMATED 296 K/uL (150-450)
== END ==
LOC: LAB 10:24
PROVIDERS: ATTEND Family Medicine
DX: E87.8 Other disorders of electrolyte and fluid balance, not elsewhere classified (principal); D72.829 Elevated white blood cell count, unspecified
CPT/HCPCS: 36415; 82310; 82374; 82435; 82565; 82947; 83735; 84132; 84295; 84520; 85025

== ENCOUNTER → 2019-02-14 | Outpatient (CLI) | payer MEDICARE ==
[~2019-02-14] MED LIST changes: +BARIUM SULFATE 176 GM BTL PO ONE; +BARIUM SULFATE 340 GM POWD ONE
--- NOTE | 2019-02-15 11:34 | RADIOLOGY IMAGING REPORT ---
[place] [facility] [place] Karen Fonseca : 1945 MR: [id number] V: [id number] EXAM DATE: ORDERING PHYSICIAN: OSEI ERICKSON TECHNOLOGIST: Location: [facility] [place] Patient: Karen Fonseca : 1945 Visit/Account:[id number] Date of Sevice: 02/14/2019 Exam type: XR UPPER GI SERIES W/O KUB History: Cough since mid September, where episodes of acid reflux and heartburn Comparison: None. Findings: Double contrast upper GI series was performed with thick and thin barium there is a small hiatal otto ia present with a large amount of gastroesophageal reflux. No significant esophageal narrowing was i dentified the stomach duodenal bulb and duodenal C-loop appeared unremarkable. The fluoroscopy dose area product was 421.38 micro-Sanders per meter squared IMPRESSION: 1. Small hiatal hernia with a large amount of gastroesophageal reflux Report Dictated By: Stacey Mai MD at 02/14/2019 5:36 PM Report E-Signed By: Stacey Mai MD at 02/15/2019 11:23 AM WSN:[id number]
== END ==
LOC: RAD 00:51
PROVIDERS: ATTEND Family Medicine
DX: K44.9 Diaphragmatic hernia without obstruction or gangrene (principal); K21.9 Gastro-esophageal reflux disease without esophagitis
CPT/HCPCS: 74240

== ENCOUNTER → 2019-02-22 | Outpatient (CLI) | payer MEDICARE ==
[~2019-02-22] MED LIST changes: -BARIUM SULFATE 176 GM BTL PO ONE; -BARIUM SULFATE 340 GM POWD ONE; +ESOM40CA6 PO
== END ==
LOC: LAB 08:24
PROVIDERS: ATTEND Surgery
DX: E83.52 Hypercalcemia (principal); E21.3 Hyperparathyroidism, unspecified
CPT/HCPCS: 36415; 82330; 83970

== ENCOUNTER → 2019-02-27 | Outpatient (CLI) | payer MEDICARE | LOC: LAB 10:07 | PROVIDERS: ATTEND Surgery | DX: E83.52 Hypercalcemia (principal) | CPT/HCPCS: 82330 ==